=== PATIENT | male | born 1960 | race Two or more races ===

== ENCOUNTER 2016-12-16 09:38 | Emergency (ER) | payer MEDICAID ==
[~2016-12-16 09:38] MED LIST: ALBUTEROL0.83 MG/ML; ALBUTEROL0.83 MG/ML INH; ALBUTEROL17 GM; ALBUTEROL17 GM INH; AVANDAMET; GLUCOPHAGE500 MG; HYDROCODON-ACE1 EAC7 PO; KADIAN; NEURONTIN600 M1 PO
[2016-12-16] MEDS ORDERED: OXAYDO7.5 MG PO (09:46)
[2016-12-16] MEDS ORDERED: LINZESS72 MCG (09:47)
[2016-12-16] MEDS ORDERED: KADIAN40 MG PO (09:47)
== END 2016-12-16 10:10 | disposition left against medical advice (07) ==
LOC: EDMED 09:38
DX: M79.672 Pain in left foot (principal); J45.909 Unspecified asthma, uncomplicated; Z88.0 Allergy status to penicillin; Z79.51 Long term (current) use of inhaled steroids